=== PATIENT | male | born 1985 | race Caucasian/White ===

== ENCOUNTER 2020-03-12 10:58 | Outpatient (REF) | payer OTHER, SELFPAY | END 2020-03-12 10:59 | disposition home or self-care (01) | LOC: HO.HMGCLDS 10:58 | PROVIDERS: PCP Family Medicine; Visit Provider Internal Medicine | DX: Z20.828 Contact with and (suspected) exposure to other viral communicable diseases (principal) | CPT/HCPCS: C9803; U0003 ==